=== PATIENT | male | born 1960 | race African-American/Black ===

== ENCOUNTER 2022-05-15 19:50 | Emergency (ER) | payer BC, OTHER ==
[~2022-05-15] VITALS: Ht 177.8 cm; Wt 72.6 kg
[2022-05-15] MEDS ORDERED: LIDOCAINE VISCOUS 2% UD 15 ML UDC ONE (20:26)
[2022-05-15] MEDS ORDERED: MAG HYDROX/AL HYDROX/SIMETH 30 ML UDC ONE (20:26)
[2022-05-15 20:30] LABS: BASOPHILS % (AUTO) 0.7 % (0.0-2.0); EOSINOPHILS % (AUTO) 2.4 % (0.0-6.0); HEMATOCRIT 33 % (39-51); HEMOGLOBIN 10.6 g/dL (13.5-17.5); LYMPHOCYTES # (AUTO) 0.8 K/uL (0.8-4.8); LYMPHOCYTES % (AUTO) 13.2 % (20.0-44.0); MEAN CORPUSCULAR HGB CONC 32 g/dl (31.0-36.0); MEAN CORPUSCULAR VOLUME 84 fL (80-96); MONOCYTES # (AUTO) 0.5 K/uL (0.1-1.30); MONOCYTES % (AUTO) 7.8 % (2.0-12.0); NEUTROPHILS # (AUTO) 4.5 K/uL (1.8-8.9); NEUTROPHILS % (AUTO) 75.9 % (43.0-81.0); PLATELET COUNT (AUTO) 358 K/uL (150-450); RED BLOOD CELL COUNT(AUTO) 3.97 MIL/uL (4.5-6.0)
[2022-05-15] MEDS ORDERED: MAG HYDROX/AL HYDROX/SIMETH 30 ML UDC PO ONE (20:30)
[2022-05-15] MEDS ORDERED: LIDOCAINE VISCOUS 2% UD 15 ML UDC MM ONE (20:30)
--- NOTE | 2022-05-15 20:31 | NUR ---
[id number] frm fdc c/o pressure like chest pain gradual onset x 3 days. pt states it feel like his heartburn.
[2022-05-15 20:54] LABS: ALBUMIN 3.3 g/dL (3.4-5.0); BILIRUBIN,DIRECT 0.1 mg/dL (0.0-0.2); BILIRUBIN,TOTAL 0.3 mg/dL (0.2-1.0); CALCIUM, SERUM 9.1 mg/dL (8.5-10.1); CREATININE 1.1 mg/dL (0.6-1.3); POTASSIUM 4.1 mmol/L (3.5-5.1); TOTAL PROTEIN, SERUM 7.1 g/dL (6.4-8.2)
[2022-05-15] MEDS ORDERED: PANT20TA2 PO (21:29)
--- NOTE | 2022-05-15 21:49 | NUR ---
Patient discharged to home in stable condition. Written and verbal after care instructions given. Patient verbalizes understanding of instruction. IV removed. Catheter intact and site benign. Pressure and 4x4 applied to site. No bleeding noted. pt ambulatory with a steady gait
[2022-05-15 21:53] VITALS: BP 147/81
== END 2022-05-15 22:09 | disposition home or self-care (01) ==
LOC: ER 19:52
DX: R10.13 Epigastric pain (principal)
CPT/HCPCS: 36415; 71045-TC; 80048-TC; 80076-TC; 83690-TC; 85025-TC

== ENCOUNTER 2022-05-17 22:23 | Emergency (ER) | payer BC, OTHER ==
[~2022-05-17] VITALS: Ht 177.8 cm; Wt 74.8 kg
[~2022-05-17 22:23] MED LIST: PANT20TA2 PO
[2022-05-17 23:07] VITALS: BP 124/68
--- NOTE | 2022-05-17 23:07 | NUR ---
BIBRA C/O ACID REFLEX
[2022-05-17] MEDS ORDERED: MAG HYDROX/AL HYDROX/SIMETH 30 ML UDC ONE (23:20)
[2022-05-17] MEDS ORDERED: LIDOCAINE VISCOUS 2% UD 15 ML UDC MM ONE (23:30)
[2022-05-17] MEDS ORDERED: MAG HYDROX/AL HYDROX/SIMETH 30 ML UDC PO ONE (23:30)
--- NOTE | 2022-05-17 23:34 | NUR ---
Patient discharged to home in stable condition. Written and verbal after care instructions given. Patient verbalizes understanding of instruction.
== END 2022-05-18 00:08 | disposition home or self-care (01) ==
LOC: ER 22:33
DX: K21.9 Gastro-esophageal reflux disease without esophagitis (principal)